=== PATIENT | male | born 1945 | race Caucasian/White ===

== ENCOUNTER 2025-10-07 16:20 | Emergency (ER) | payer MEDICARE, OTHER ==
[2025-10-07 17:01] LABS: BASOPHILS ABSOLUTE AUTO 0.03 K/uL (0.00-0.20); BASOPHILS PERCENT AUTO 0.5 % (0.0-1.0); EOSINOPHILS ABSOLUTE AUTO 0.20 K/uL (0.00-0.45); EOSINOPHILS PERCENT AUTO 3.3 % (0.0-6.0); IMMATURE GRAN ABSOLUTE AUTO 0.04 K/uL (0.00-0.05); IMMATURE GRAN PERCENT AUTO 0.7 % (0.0-0.4); LYMPHOCYTES ABSOLUTE AUTO 1.03 K/uL (1.00-4.80); LYMPHOCYTES PERCENT AUTO 16.7 % (24.0-44.0); MEAN PLATELET VOLUME 11.7 fL (9.4-12.4); MONOCYTES ABSOLUTE AUTO 0.55 K/uL (0.00-0.80); MONOCYTES PERCENT AUTO 8.9 % (0.0-8.0); NEUTROPHILS ABSOLUTE AUTO 4.30 K/uL (1.80-7.70); NEUTROPHILS PERCENT AUTO 69.9 % (41.0-71.0); NRBC ABSOLUTE 0.00 K/uL (0.00-0.02); NRBC PERCENT 0.0 /100WBC (0.0-0.2); PLATELET COUNT,PLT 165 K/uL (150-400); RED BLOOD CELL COUNT 4.14 M/uL (4.52-5.90); WHITE BLOOD CELL COUNT,WBC 6.15 K/uL (3.9-11.3)
[2025-10-07 17:06] LABS: A/G RATIO 1.2 (0.9-1.6); ALANINE AMINOTRANSFERASE,ALT 26.0 IU/L (14-63); ASPARTATE AMNIOTRANSFERASE,AST 20.0 IU/L (15-37); BILIRUBIN TOTAL 0.5 mg/dL (0.2-1.0); BLOOD UREA NITROGEN,BUN 19.0 mg/dL (7.0-18.0); CARBON DIOXIDE,CO2 25.1 mmol/L (21.0-32.0); CHLORIDE,CL 103.0 mmol/L (98-107); CREATININE 1.7 mg/dL (0.8-1.3); EST CRCL DRUG DOSING (CG) 31.32 mL/min; GLUCOSE RANDOM 100.0 mg/dL (74-106); POTASSIUM,K 4.2 mmol/L (3.5-5.1); PRO B-TYPE NATRIUR PEPT,BNPPRO 242.0 pg/mL (0-450); PROTEIN TOTAL,TP 7.1 g/dL (6.4-8.2); SODIUM,NA 139.0 mmol/L (136-148)
[2025-10-07 17:10] LABS: ESTIMATED GFR 40.0 mL/min (>60)
[2025-10-07 19:02] LABS: APPEARANCE,URINE CLEAR; GLUCOSE,URINE NEGATIVE (NEGATIVE); OCCULT BLOOD,URINE NEGATIVE (NEGATIVE)
== END 2025-10-07 20:07 | disposition home or self-care (01) ==
LOC: MW.ED 16:20
DX: R07.89 Other chest pain (principal)
CPT/HCPCS: 36415; 71045; 80053; 83880; 84484; 85025; 85379; 99285; A9270; 93010; 99283